=== PATIENT | female | born 1940 | race Caucasian/White ===

== ENCOUNTER → 2020-10-05 | Outpatient (CLI) | payer MEDICARE, OTHER | LOC: RAD 09:58 | DX: K21.9 Gastro-esophageal reflux disease without esophagitis (principal); K22.5 Diverticulum of esophagus, acquired; K22.2 Esophageal obstruction | CPT/HCPCS: 74246 ==

== ENCOUNTER 2021-03-08 12:58 | Inpatient (IN) | payer MEDICARE, OTHER ==
[~2021-03-08] VITALS: Ht 157.5 cm; Wt 49.4 kg
[2021-03-08 15:43] LABS: HEMOGLOBIN 13.1 gm/dl (12.3-15.3); RED BLOOD COUNT 4.01 M/UL (4.00-5.10); WHITE BLOOD COUNT 10.4 K/UL (4.5-11.0)
[2021-03-08] MEDS ORDERED: CLOPIDOGREL75 MG PO (15:54)
[2021-03-08] MEDS ORDERED: ATORVASTATIN CA10 MG PO (15:54)
[2021-03-08] MEDS ORDERED: FAMOTIDINE20 MG PO (15:55)
[2021-03-08] MEDS ORDERED: FUROSEMIDE40 MG PO (15:55)
[2021-03-08] MEDS ORDERED: METOPROLOL SUC100 MG PO (15:55)
[2021-03-08] MEDS ORDERED: JARDIANCE25 MG PO (15:55)
[2021-03-08] MEDS ORDERED: THIORIDAZINE HC10 MG PO (15:56)
[2021-03-08] MEDS ORDERED: DONEPEZIL HCL10 MG PO (15:56)
[2021-03-08] MEDS ORDERED: ASPIRIN EC81 MG PO (15:56)
[2021-03-08 16:20] LABS: BUN/CREATININE RATIO 24 (0-10)
[2021-03-09 07:52] LABS: HEMOGLOBIN 11.9 gm/dl (12.3-15.3); RED BLOOD COUNT 3.8 M/UL (4.00-5.10); WHITE BLOOD COUNT 7.2 K/UL (4.5-11.0)
[2021-03-09 10:23] LABS: BUN/CREATININE RATIO 35 (0-10)
[2021-03-10 07:19] LABS: HEMOGLOBIN 11.7 gm/dl (12.3-15.3); RED BLOOD COUNT 3.68 M/UL (4.00-5.10)
[2021-03-10 10:54] LABS: BUN/CREATININE RATIO 34 (0-10)
[2021-03-11 07:00] LABS: HEMOGLOBIN 11.8 gm/dl (12.3-15.3); RED BLOOD COUNT 3.78 M/UL (4.00-5.10); WHITE BLOOD COUNT 9.2 K/UL (4.5-11.0)
[2021-03-11 07:17] LABS: BUN/CREATININE RATIO 40 (0-10)
[2021-03-12 03:53] LABS: HEMOGLOBIN 12.9 gm/dl (12.3-15.3); RED BLOOD COUNT 4.04 M/UL (4.00-5.10); WHITE BLOOD COUNT 7.7 K/UL (4.5-11.0)
[2021-03-12 04:17] LABS: BUN/CREATININE RATIO 32 (0-10)
[2021-03-13 03:37] LABS: HEMOGLOBIN 12.5 gm/dl (12.3-15.3); RED BLOOD COUNT 3.95 M/UL (4.00-5.10); WHITE BLOOD COUNT 7.5 K/UL (4.5-11.0)
[2021-03-13 04:05] LABS: BUN/CREATININE RATIO 41 (0-10)
[2021-03-14 04:10] LABS: HEMOGLOBIN 12.1 gm/dl (12.3-15.3); RED BLOOD COUNT 3.85 M/UL (4.00-5.10)
[2021-03-14 04:14] LABS: WHITE BLOOD COUNT 5.4 K/UL (4.5-11.0)
[2021-03-14 04:39] LABS: BUN/CREATININE RATIO 42 (0-10)
[2021-03-15 13:41] LABS: HEMOGLOBIN 11.8 gm/dl (12.3-15.3); RED BLOOD COUNT 3.71 M/UL (4.00-5.10)
[2021-03-15 13:42] LABS: WHITE BLOOD COUNT 8.2 K/UL (4.5-11.0)
[2021-03-15 14:10] LABS: BUN/CREATININE RATIO 42 (0-10)
[2021-03-16 10:42] LABS: HEMOGLOBIN 12.1 gm/dl (12.3-15.3); RED BLOOD COUNT 3.78 M/UL (4.00-5.10)
[2021-03-16 11:11] LABS: BUN/CREATININE RATIO 42 (0-10)
[2021-03-17 04:16] LABS: HEMOGLOBIN 12.8 gm/dl (12.3-15.3); RED BLOOD COUNT 4.1 M/UL (4.00-5.10)
[2021-03-17 04:23] LABS: WHITE BLOOD COUNT 8.1 K/UL (4.5-11.0)
[2021-03-17 05:16] LABS: BUN/CREATININE RATIO 36 (0-10)
--- NOTE | 2021-03-17 17:01 | NUR ---
CALLED DR MENA WITH PATIENT ELEVATED BLOOD SUGAR AT 450. ACCORDING TO SLIDING SCALE THE MD IS TO BE CONTACTED. SHE ORDERED A ONE TIME DOSE OF 15UNITS AND CONTINUE PATIENT ON MEDIUM DOSE SLIDING SCALE
[2021-03-18 04:14] LABS: HEMOGLOBIN 11.5 gm/dl (12.3-15.3); WHITE BLOOD COUNT 9.4 K/UL (4.5-11.0)
[2021-03-18 04:27] LABS: RED BLOOD COUNT 3.57 M/UL (4.00-5.10)
[2021-03-18 04:42] LABS: BUN/CREATININE RATIO 48 (0-10)
[2021-03-19 03:51] LABS: HEMOGLOBIN 11.2 gm/dl (12.3-15.3); RED BLOOD COUNT 3.54 M/UL (4.00-5.10); WHITE BLOOD COUNT 6.9 K/UL (4.5-11.0)
[2021-03-19 04:20] LABS: BUN/CREATININE RATIO 41 (0-10)
[2021-03-20 03:27] LABS: HEMOGLOBIN 11.1 gm/dl (12.3-15.3); RED BLOOD COUNT 3.47 M/UL (4.00-5.10); WHITE BLOOD COUNT 6.4 K/UL (4.5-11.0)
[2021-03-20 03:42] LABS: BUN/CREATININE RATIO 42 (0-10)
[2021-03-21 02:58] LABS: HEMOGLOBIN 9.2 gm/dl (12.3-15.3)
[2021-03-21 02:59] LABS: RED BLOOD COUNT 2.86 M/UL (4.00-5.10); WHITE BLOOD COUNT 10.3 K/UL (4.5-11.0)
[2021-03-21 03:30] LABS: BUN/CREATININE RATIO 55 (0-10)
[2021-03-22 06:44] LABS: RED BLOOD COUNT 3.13 M/UL (4.00-5.10); WHITE BLOOD COUNT 9.9 K/UL (4.5-11.0)
[2021-03-22 07:37] LABS: BUN/CREATININE RATIO 36 (0-10)
[2021-03-22] MEDS ORDERED: ELIQUIS 2.5 MG2.5 MG PO (17:54)
[2021-03-22] MEDS ORDERED: LOPRESSOR 50 MG50 MG PO (17:54)
[2021-03-22] MEDS ORDERED: TYLENOL325 MG PO (18:06)
[2021-03-22] MEDS ORDERED: COMBIVENT RESPIM4 GM INH (18:08)
== END 2021-03-22 20:06 | disposition home health service (06) | DRG 177 ==
LOC: ER1 12:58 → PROG CARE 17:01 → MED SURG 4 17:01 → CDU 17:01 → MED SURG 4 21:34 → PROG CARE 03-11 13:08 → MED SURG 4 03-21 20:26
PROVIDERS: Internal Medicine; Physician Assistant; ADMIT Internal Medicine
PROC: 3E0333Z Introduction of Anti-inflammatory into Peripheral Vein, Percutaneous Approach (ICD-10-PCS; 2021-03-08)
PROC: 8E0ZXY6 Isolation (ICD-10-PCS; 2021-03-08)
PROC: XW033E5 Introduction of Remdesivir Anti-infective into Peripheral Vein, Percutaneous Approach, New Technology Group 5 (ICD-10-PCS; 2021-03-08)
PROC: B24BZZ4 Ultrasonography of Heart with Aorta, Transesophageal (ICD-10-PCS; principal; 2021-03-09)
DX: U07.1 COVID-19 (principal); J12.82 Pneumonia due to coronavirus disease 2019; G92.8 Other toxic encephalopathy; J15.9 Unspecified bacterial pneumonia; J96.01 Acute respiratory failure with hypoxia; E43 Unspecified severe protein-calorie malnutrition; S42.302A Unspecified fracture of shaft of humerus, left arm, initial encounter for closed fracture; E87.2 Acidosis; I50.22 Chronic systolic (congestive) heart failure; E87.1 Hypo-osmolality and hyponatremia; J98.11 Atelectasis; N17.9 Acute kidney failure, unspecified; Z68.1 Body mass index [BMI] 19.9 or less, adult; I25.10 Atherosclerotic heart disease of native coronary artery without angina pectoris; E11.9 Type 2 diabetes mellitus without complications; F03.90 Unspecified dementia, unspecified severity, without behavioral disturbance, psychotic disturbance, mood disturbance, and anxiety; I11.0 Hypertensive heart disease with heart failure; E11.65 Type 2 diabetes mellitus with hyperglycemia; E87.6 Hypokalemia; R00.1 Bradycardia, unspecified; E86.1 Hypovolemia; E86.0 Dehydration; F39 Unspecified mood [affective] disorder; I48.0 Paroxysmal atrial fibrillation; L89.151 Pressure ulcer of sacral region, stage 1; K44.9 Diaphragmatic hernia without obstruction or gangrene; W01.0XXA Fall on same level from slipping, tripping and stumbling without subsequent striking against object, initial encounter; E78.5 Hyperlipidemia, unspecified; R55 Syncope and collapse; Z95.1 Presence of aortocoronary bypass graft; Z79.82 Long term (current) use of aspirin; Z79.899 Other long term (current) drug therapy; Z90.49 Acquired absence of other specified parts of digestive tract; Z79.02 Long term (current) use of antithrombotics/antiplatelets; Z79.01 Long term (current) use of anticoagulants
CPT/HCPCS: ECHO; 36415; 70450; 70551; 71045; 71250; 71275; 73030; 73060; 73080; 73200; 80053; 81001; 82550; 82553; 82962; 83036; 83605; 83735; 83874; 84132; 84439; 84443; 84484; 85025; 85027; 85379; 85610; 85730; 87040; 92526; 92610; 93005; 93306; 93970; 94640; 94664; 94760; 97110-GP-CQ; 97162; 97166; 97530; 97530-GP-CQ; 99285; J0692; J1100; J1160; J1650; J3480; J7030; Q9967; U0002